=== PATIENT | female | born 1950 | race African-American/Black ===

== ENCOUNTER 2017-06-27 10:50 | Outpatient (CLI) | payer MEDICARE, OTHER | END 2017-06-27 10:52 | LOC: LAB 10:50 | PROVIDERS: ATTEND Internal Medicine Nephrology | DX: I10 Essential (primary) hypertension (principal); N18.5 Chronic kidney disease, stage 5 | CPT/HCPCS: 81050; 82088; 83835; 84244 ==

== ENCOUNTER 2017-08-18 16:20 | Emergency (ER) | payer MEDICARE, OTHER ==
[2017-08-18] MEDS: ONDANSETRON HCL 4 MG TAB.RAPDIS PO ONE (16:52)
--- NOTE | 2017-08-18 17:02 | ED Physician Documentation ---
Sore Throat/Dental Pain - HISTORIAN Historian: patient - HPI Stated Complaint: dental pain Chief Complaint: Dental Pain Additional Information: dental pain tooth 17 Onset: other (1 week worse last noct) Context: Possible Infection Associated Symptoms: chills, moderate. denies: fever, runny nose, congestion Worsened By: heat, cold - ROS CONST: no problems CVS/RESP: none GI/: other (on dialysis) NEURO/PSYCH: other (nausea) - PAST HX Past History: other (HTN RENAL FAILURE-DIALYSIS CA BREAST REM 2002) Allergies/Adverse Reactions: Allergies Allergy/AdvReac Type Severity Reaction Status Date / Time celecoxib [From Celebrex] Allergy Verified 08/18/17 16:31 morphine Allergy Verified 08/18/17 16:31 Home Medications: Ambulatory Orders Medication Instructions Recorded Furosemide [Lasix] 80 mg PO DAILY #30 u2 09/23/15 Nifedipine [Nifedipine Er] 60 mg PO Q12 #60 u2 09/23/15 Pnv with Ca,No.72/Iron/FA [Preplus 1 each PO DAILY #30 u2 09/23/15 Ca-Fe 27 Mg-Fa 1 Mg Tb] Sevelamer Carbonate [Renvela] 800 mg PO TID #90 u2 09/23/15 Carvedilol [Coreg] 25 mg PO BID 08/18/17 CloNIDine HCL [Catapress] 0.1 mg PO TID 08/18/17 Clonidine [Catapres-Tts 3] 0.2 mg TD WEEK 08/18/17 Lisinopril [Prinivil] 20 mg PO DAILY 08/18/17 - SOCIAL HX Smoking History: non-smoker Alcohol Use: none Drug Use: none - FAMILY HX Family History: No - VITAL SIGNS Vital Signs: Vital Signs Temp Pulse Resp BP Pulse Ox 97.9 F 84 18 209/135 98 08/18/17 16:32 08/18/17 16:32 08/18/17 16:32 08/18/17 16:32 08/18/17 16:32 - REVIEWED ASSESSMENTS Nursing Assessment Reviewed: Yes Vitals Reviewed: Yes ED Results Lab/Radiology - Orders Orders: ED Orders Category Date Time Status Ondansetron HCl Rapdis [Zofran Odt] Med 08/18/17 16:42 Discontinued 4 mg PO NOW ONE Dental Pain Physical Exam - EXAM General Appearance: moderate distress Head/Neck: head nml inspection Mouth/Throat: lips nml, gums nml (SL REDNESS AT DENTAL SITE.), gum swelling around teeth. No: widespread dental decay, pharyngeal erythema, uvular shift, pointing abscess, muffled voice Ear/Nose: nml inspection Respiratory: no resp. distress, breath sounds nml CVS: reg. rate & rhythm, heart sounds nml Abdomen: soft, non-tender Extremities: non-tender, nml ROM Skin: warm/dry, normal color. No: cyanosis, diaphoresis Neuro/Psych: No: weakness, numbness Discharge Clincal Impression: Pain, dental Referrals: Chaz Streeter MD [Primary Care Provider] - 2 Days Condition: Good Disposition: 01 HOME, SELF-CARE Decision to Admit: NO Decision Time: 17:02
[2017-08-18 17:09] VITALS: BP 189/97
== END 2017-08-18 17:04 | disposition home or self-care (01) ==
LOC: ED 16:20
DX: K08.89 Other specified disorders of teeth and supporting structures (principal)
CPT/HCPCS: 99283; A9270

== ENCOUNTER 2017-10-24 05:57 | Emergency (ER) | payer MEDICARE, OTHER ==
[2017-10-24 06:23] VITALS: BP 142/92
--- NOTE | 2017-10-24 06:55 | ED Physician Documentation ---
Chest Pain - HISTORIAN Historian: patient, friend - HPI Stated Complaint: DIZZY Chief Complaint: Dizziness Additional Information: dialysis hypertensive iris cardic pt down to hr 45 at times c/o dizziness nausea. pt on many htn meds(see list) which are probably contributing to condition. pt has been on dialysis for 2 yrs hypertensivefor many years Onset: days ago (prog passt day or so) Timing: gradual onset Duration: waxing, waning Last known Well Date: 10/21/17 Last Known Well Time: 10:12 Last known Well Code/Unknown Code: Unknown (this date and time are required before the chart will close so it is JUST an estimation. pt is vague re the start time. ) Severity: moderate Quality: tightness Chest Pain Radiation: no radiation Chest Pain Signs/Symptoms: nausea. denies: vomiting, diaphoresis - ROS CONST: none (except as above) MS/LYMPH: none SKIN/ENDO: none NEURO/PSYCH: depression - PAST HX VT risk factors: hypertension, other (dialysis ch renal failure) Neuro deficit: none Surgeries/Procedures: other (has centcath for dialysis) Allergies/Adverse Reactions: Allergies Allergy/AdvReac Type Severity Reaction Status Date / Time celecoxib [From Celebrex] Allergy Verified 10/24/17 06:23 morphine Allergy Verified 10/24/17 06:23 Home Medications: Ambulatory Orders Medication Instructions Recorded Furosemide [Lasix] 80 mg PO DAILY #30 u2 09/23/15 Nifedipine [Nifedipine Er] 60 mg PO Q12 #60 u2 09/23/15 Pnv with Ca,No.72/Iron/FA [Preplus 1 each PO DAILY #30 u2 09/23/15 Ca-Fe 27 Mg-Fa 1 Mg Tb] Sevelamer Carbonate [Renvela] 800 mg PO TID #90 u2 09/23/15 Carvedilol [Coreg] 25 mg PO BID 08/18/17 CloNIDine HCL [Catapress] 0.1 mg PO TID 08/18/17 Clonidine [Catapres-Tts 3] 0.2 mg TD WEEK 08/18/17 Lisinopril [Prinivil] 20 mg PO DAILY 08/18/17 - SOCIAL HX Smoking History: non-smoker Alcohol Use: none Drug Use: none - FAMILY HX Family HX: none - VITAL SIGNS Vital Signs: Vital Signs Temp Pulse Resp BP Pulse Ox 97.8 F 58 L 16 142/92 99 10/24/17 05:59 10/24/17 05:59 10/24/17 05:59 10/24/17 05:59 10/24/17 05:59 - REVIEWED ASSESSMENTS Nursing Assessment Reviewed: Yes Vitals Reviewed: Yes Progress - Progress Progress: pt has not refused bloodd raw except from dialysis catheter. nurse called dialysis unit-they said defijnitelyl no sowill red meds allow pt to go to dialysis then to pcp at [facility]. it is anticipated that the dialysis. may relieve some of the symptoms. ED Results Lab/Radiology - Orders Orders: ED Orders Category Date Time Status Continuous EKG monitoring Q30M Care 10/24/17 06:47 Ordered Continuous Pulse Oximetry Q30M Care 10/24/17 06:47 Ordered CHEST 1 VIEW [RAD] Stat Exams 10/24/17 06:47 Ordered CREATINE KINASE Routine Lab 10/24/17 06:47 Ordered Oxygen Daily Oxygen 10/24/17 07:00 Ordered EKG WITH COMPARISON Stat Ther 10/24/17 06:47 Ordered Chest Pain Physical Exam - EXAM General Appearance: mild distress, moderate distress EENT: eye inspection normal Neck: nml inspection Respiratory: no resp. distress, chest non-tender, wheezes, rales. No: nml breath sounds CVS: No: reg. rate & rhythm Abdomen: soft, non-tender Skin: warm/dry, normal color. No: cyanosis, diaphoresis, jaundice Extremities: non-tender, normal range of motion Neuro: oriented X3, motor nml, sensation nml, mood/affect nml Discharge Clincal Impression: iris cardia udo-suspect meds, dialysis pt-renal failure fr htn, hypotension this visit Referrals: Navid Beatty MD [Primary Care Provider] - 2 Days Comments: spoke w/pt she agres to go on to dialysis unit from here--will hold meds then go to [place] to see PCP. she states she can walk w/o difficulty. she is not driving-will [place] cab to dialysis Condition: Fair Disposition: 01 HOME, SELF-CARE Decision to Admit: NO Decision Time: 07:12
== END 2017-10-24 07:15 | disposition home or self-care (01) ==
LOC: ED 05:57
DX: R00.1 Bradycardia, unspecified (principal); I12.0 Hypertensive chronic kidney disease with stage 5 chronic kidney disease or end stage renal disease; N18.6 End stage renal disease; I95.9 Hypotension, unspecified
CPT/HCPCS: 99282

== ENCOUNTER → 2018-04-25 | Outpatient (CLI) | payer MEDICARE, OTHER | LOC: LAB 09:47 | PROVIDERS: ATTEND Internal Medicine Nephrology | DX: E26.9 Hyperaldosteronism, unspecified (principal); I10 Essential (primary) hypertension | CPT/HCPCS: 82088; 83835; 84244 ==